=== PATIENT | male | born 1940 | race Caucasian/White ===

== ENCOUNTER → 2018-06-02 11:25 | Outpatient (CLI) | payer MEDICARE, OTHER, SELFPAY ==
[2018-06-02 12:11] LABS: Add Manual Diff / Slide Review NO; Basophils Percent Auto 0.9 % (0-2); Eosinophils Percent Auto 3.1 % (2-4); Hemoglobin 16.4 g/dL (13.5-17.5); Lymphocytes Percent Auto 27.9 % (25-40); Mean Corpuscular HGB Conc 34.3 % (30-36); Mean Corpuscular Hemoglobin 31.9 PG (26-34); Mean Corpuscular Volume 93.1 fL (80-100); Monocytes Percent Auto 8.9 % (3-14); Neutrophils Absolute Auto 3100 /uL (3000-5900); Neutrophils Percent Auto 59.2 % (50-75); Platelet Count 169 X10^3/uL (150-400); Red Blood Cell Count 5.15 X10^6/uL (4.5-5.9); Red Cell Distribution Width 13.1 % (11.6-14.8); White Blood Cell Count 5.3 X10^3/uL (4.5-11.0)
[2018-06-02 12:28] LABS: Erythrocyte Sedimentation Rate 9 MM/HR (0-15)
[2018-06-02 13:19] LABS: C-Reactive Protein Quant < 0.5 mg/dL (<1.0)
== END ==
PROVIDERS: PCP Internal Medicine; Visit Provider Specialist
DX: M31.6 Other giant cell arteritis (principal)
CPT/HCPCS: 36415; 85025; 85651; 86140

== ENCOUNTER 2018-08-22 02:47 | Emergency (ER) | payer MEDICARE, OTHER, SELFPAY ==
[2018-08-22] VITALS (10 sets, daily range): BP systolic 98–118; BP diastolic 56–76; PULSE 86–90; RESP 14–19; TEMP 36.4; O2SAT 22–95; BMI 30.7
--- NOTE | 2018-08-22 02:50 | DI.RAD.S_ITS ---
PROCEDURE: XR CHEST 1V INDICATIONS: SOb TECHNIQUE: One view of the chest was acquired. COMPARISON: [facility], CT, CT ANGIO CHEST PE PROTOCOL, 08/22/2018, 5:51. [facility], CR, CHEST 2 VIEW, 06/08/2017, 14:17. FINDINGS: Surgical changes and devices: None. Lungs and pleura: Widespread bilateral ill-defined hazy and groundglass opacities. There is also retrocardiac patchy consolidation. Bilateral layering pleural effusions. No pneumothorax identified. Mediastinum: Mediastinal contours appear normal. Heart size is enlarged. Bones and chest wall: No suspicious bony lesions. Overlying soft tissues appear unremarkable. IMPRESSION: Bilateral hazy and ill-defined opacities suggestive of pulmonary edema. Recommend clinical correlation to exclude superimposed infection. Please see recent comparison chest CT dated same day for further assessment. Small bilateral pleural effusions better characterized on the comparison CT Dictated by: Ramakrishna Reardon M.D. on 08/22/2018 at 8:00 Approved by: Ramakrishna Reardon M.D. on 08/22/2018 at 8:03
--- NOTE | 2018-08-22 03:00 | ED_ITS ---
HPI - SOB/Dyspnea General Chief Complaint: Shortness of Breath/Dyspnea Stated Complaint: pneumonia,shortness of breath Time Seen by Provider: 08/22/18 02:48 Source: patient Mode of arrival: ambulatory Limitations: no limitations History of Present Illness Patient is an 78-year-old male with history of coronary artery disease and stents placed also history of congestive heart failure on 20 mg of Lasix 2 times a day. He states he was emergently prescribed 40 mg of Lasix however 1 year ago he dropped it to 20 mg 2 times a day because it was causing him to urinate too much. He states that for the past several days/weeks he has had progressively worsening shortness of breath. At baseline he sleeps on 3 pillows at night and has been doing this. He states that he has been getting short of breath with walking. He has seen his primary doctor. He has completed a course of azithromycin for this shortness of breath. He does state that he is coughing but is not a productive cough. He had subjective fevers yesterday but none today. He came in this evening because his shortness of breath was worsening. States that he occasionally gets bilateral lower extremity swelling but he does not think that he has any swelling now. Has had occasional chest pain but states that that is not why he came into the emergency department. Related Data Home Medications Medication Instructions Recorded Confirmed clopidogrel [Plavix] 75 mg PO QDAY #0 12/28/10 08/22/18 oxybutynin chloride 5 mg PO TIDAC #0 12/28/10 acetaminophen 325 mg tablet 325 mg PO Q6H PRN 06/02/18 06/02/18 hydrocodone 5 mg-acetaminophen 300 2 tab PO Q4-6H PRN 06/02/18 06/02/18 mg tablet insulin asp prt-insulin aspart SUBCUT 06/02/18 06/02/18 oxycodone 5 mg tablet 5 mg PO Q4-6H PRN 06/02/18 06/02/18 pregabalin 300 mg capsule 300 mg PO TID cap 06/02/18 06/02/18 testosterone enanthate 200 mg/mL 200 mg IM Q2W 06/02/18 06/02/18 intramuscular oil pravastatin 40 mg PO DAILY 08/22/18 08/22/18 Allergies Allergy/AdvReac Type Severity Reaction Status Date / Time aspirin [ASPIRIN] Allergy Severe SEVERE Verified 08/22/18 03:11 BLEEDING diazepam [DIAZEPAM] Allergy Severe CONVULSIONS, Verified 08/22/18 03:11 HIVES zinc [ZINC] Allergy Severe SEVERE PAIN Verified 08/22/18 03:11 Review of Systems Constitutional Denies fever(s) and Denies headache(s) ENT Ears, Nose, Mouth, and Throat: Denies vertigo and Denies headache(s) Cardiovascular Reports chest pain (Occasionally but not now), Reports dyspnea, Reports dyspnea on exertion and Reports orthopnea Respiratory Reports cough, Reports dyspnea, Reports dyspnea on exertion and Denies wheezing Gastrointestinal Gastrointestinal: Denies abdominal pain, Denies nausea and Denies vomiting Genitourinary Denies dysuria Musculoskeletal Denies myalgias and Denies arthralgias Integumentary/Breasts Denies rash Neurologic Denies behavioral changes, Denies vertigo and Denies headache(s) Psychiatric Denies behavioral changes Hematologic/Lymphatic Denies easy bleeding and Denies easy bruising Allergic/Immunologic Denies wheezing PFSH Medical History Congestive heart failure (Acute) Coronary artery disease (Acute) Diabetes (Acute) Hypertension (Acute) Social History Smoking Status: Never smoker Social History Smoking Status: Never smoker Exam Initial Vital Signs Initial Vital Signs: Vital Signs Pulse Rate 90 08/22/18 03:00 Respiratory Rate 19 08/22/18 03:00 Blood Pressure 111/74 08/22/18 03:00 Pulse Oximetry 94 08/22/18 03:00 Const General: cooperative, well developed, well groomed and No acute distress Orientation: alert, awake and oriented x3 HENMT Head: normal to inspection and normocephalic Resp Effort & Inspection: no audible wheezes, no cough, not labored and tachypneic Auscultation: crackles Cardio Rate: regular rate Rhythm: regular rhythm Pulses: radial pulses present GI Inspection: non-distended Palpation: soft Skin Lesions: no lesions Rashes: no rashes Neuro General: alert and oriented x3 Extrem General: edema (1+ pitting edema bilateral) Psych Appearance: grossly normal and well kempt Course Orders Ordered: ED Orders 08/22/18 02:50 XR chest 1V Stat EKG-12 Lead Stat 08/22/18 03:40 B Type Natriuretic Peptide Stat Basic Metabolic Panel Stat Complete Blood Count AUTO DIFF Stat Partial Thromboplastin Time Stat Prothrombin Time INR Stat Troponin I Stat 08/22/18 05:41 CT angio chest PE protocol Stat Heparin Sodium/Dextrose (Heparin Drip) 25,000 unit in 500 mls @ 23.95 mls/hr IV CONT RANDEE; Protocol Last Admin: 08/22/18 06:12 Dose: 10.02 units/kg/hr, 20 mls/hr Sodium Chloride (Normal Saline 0.9%) 1,000 mls @ 150 mls/hr IV CONT RANDEE Last Admin: 08/22/18 06:13 Dose: 150 mls/hr Discontinued Medications Furosemide (Lasix) 60 mg IV NOW ONE Stop: 08/22/18 03:31 Last Admin: 08/22/18 03:55 Dose: 60 mg Heparin Sodium (Porcine) (Heparin) 0 unit IV Q6H PRN; Protocol PRN Reason: protocol Heparin Sodium (Porcine) (Heparin) 5,000 unit IV NOW ONE Stop: 08/22/18 04:44 Last Admin: 08/22/18 06:13 Dose: 5,000 unit Vital Signs - 8 hr 08/22/18 03:00 08/22/18 03:07 08/22/18 03:30 Temperature 97.6 F Pulse Rate 90 88 89 Respiratory Rate 19 14 19 Blood Pressure 111/74 Blood Pressure [Right Arm] 111/74 104/65 Pulse Oximetry 94 95 93 08/22/18 04:00 08/22/18 05:11 08/22/18 05:30 Temperature Pulse Rate 88 86 86 Respiratory Rate 18 17 18 Blood Pressure Blood Pressure [Right Arm] 117/76 108/70 108/71 Pulse Oximetry 92 93 94 08/22/18 06:36 08/22/18 07:32 Temperature Pulse Rate 86 88 Respiratory Rate 15 18 Blood Pressure Blood Pressure [Right Arm] 118/75 98/56 L Pulse Oximetry 22 L 90 L MDM - SOB/Dyspnea Lab Data Attestation: I reviewed the patient's lab results. Result diagrams: 08/22/18 03:40 08/22/18 03:40 Lab Results 08/22/18 08/22/18 08/22/18 Range/Units 03:40 03:40 03:40 WBC 6.1 (4.5-11.0) X10^3/uL RBC 5.00 (4.5-5.9) X10^6/uL Hgb 15.9 (13.5-17.5) g/dL Hct 46.7 (41-53) % MCV 93.5 (80-100) fL MCH 31.9 (26-34) PG MCHC 34.1 (30-36) % RDW 13.5 (11.6-14.8) % Plt Count 169 (150-400) X10^3/uL Neut % (Auto) 71.2 (50-75) % Lymph % (Auto) 17.3 L (25-40) % [place] % (Auto) 8.4 (3-14) % Eos % (Auto) 2.1 (2-4) % Baso % (Auto) 1.0 (0-2) % Neut # (Auto) 4400 (9149-3170) /uL Lymph # (Auto) 1100 (0215-2022) /uL [place] # (Auto) 500 (0-900) /uL Eos # (Auto) 100 (0-450) /uL Baso # (Auto) 100 (0-100) /uL PT 12.0 (10.1-12.7) SECONDS INR 1.0 (0.9-1.3) APTT 28 (26.4-36.2) SECONDS Sodium 137 (137-145) mmol/L Potassium 5.4 H (3.4-5.1) mmol/L Chloride 101 (98-107) mmol/L Carbon Dioxide 26 (22-32) mmol/L BUN 36 H (9-20) mg/dL Creatinine 1.50 H (0.66-1.25) mg/dL Estimated GFR 45.0 L (>60) mL/min BUN/Creatinine Ratio 24.0 H (6-22) Glucose 306 H (80-110) mg/dL Calcium 9.2 (8.4-10.2) mg/dL Troponin I 2.910 H* (0.01-0.034) ng/mL B-Natriuretic Peptide 1190 H (<100) Imaging Data Chest x-ray: Attestation: I personally reviewed and interpreted this imaging study as follows: My impression: Bilateral patchy infiltrates consistent with pulmonary edema no focal consolidation CT scan - chest: Radiologist's impression: No pulmonary emboli. Cardiomegaly. Moderate bilateral pleural effusions. Mild bronchial go vascular and septal thickening, likely pulmonary edema. Air-filled mildly dilated loops of small bowel, most likely ileus. Clinical correlation is recommended. ECG Data Attestation: I personally reviewed and interpreted this ECG as follows: Prior ECG tracings: not available for review Interpretation: Sinus rhythm Ventricular rate 85 Occasional PACs Right axis deviation Right bundle-branch Nonspecific ST T wave changes MDM Narrative Medical decision making narrative: Patient's history and physical exam concerning for CHF and less likely pneumonia given the setting of no fever and his elevated BNP. His troponin is also elevated. There is no ST elevations on his EKG. He was given 60 of Lasix here in the emergency department. Given his elevated troponin there is concern for non ST elevation CA. Initially patient very reluctant to start heparin however I informed him that given the elevated troponin and his cardiac history I did have concern that he was experiencing a cardiac event. We did discuss the risks and benefits and eventually he did except the medication. Patient preferred [facility] given his prior integration specialist there however there were no beds. Patient then asked for [facility]. Discussed the case with Dr. Peterson with Cardiology who accepts the patient in transfer. Discussed the transfer with the patient and his were bedside. They expressed understanding and agreement. Discharge Plan Departure Patient Disposition: [facility] Clinical Impression: Non-ST elevation CA (NSTEMI) Congestive heart failure Qualifiers: Heart failure type: unspecified Heart failure chronicity: unspecified Qualified Code(s): I50.9 - Heart failure, unspecified Prescriptions: No Action clopidogrel [Plavix] 75 MG tablet 75 mg PO QDAY Qty: 0 RF: 0 oxybutynin chloride 5 MG tablet 5 mg PO TIDAC Qty: 0 RF: 0 pravastatin 40 mg Tablet 40 mg PO DAILY RF: 0 insulin asp prt-insulin aspart SUBCUT RF: 0 pregabalin [Lyrica] 300 mg capsule 300 mg PO TID RF: 0 hydrocodone-acetaminophen [Vicodin] 5-300 mg tablet 2 tab PO Q4-6H PRNRF: 0 testosterone enanthate 200 mg/mL oil 200 mg IM Q2W RF: 0 oxycodone 5 mg tablet 5 mg PO Q4-6H PRNRF: 0 acetaminophen [Tylenol] 325 mg tablet 325 mg PO Q6H PRNRF: 0 Referrals: Narciso Kerr MD [Primary Care Provider] -
[2018-08-22 03:50] LABS: Add Manual Diff / Slide Review NO; Basophils Absolute Auto 100 /uL (0-100); Eosinophils Absolute Auto 100 /uL (0-450); Eosinophils Percent Auto 2.1 % (2-4); Hematocrit 46.7 % (41-53); Hemoglobin 15.9 g/dL (13.5-17.5); Lymphocytes Absolute Auto 1100 /uL (1100-4500); Lymphocytes Percent Auto 17.3 % (25-40); Mean Corpuscular HGB Conc 34.1 % (30-36); Mean Corpuscular Hemoglobin 31.9 PG (26-34); Mean Corpuscular Volume 93.5 fL (80-100); Monocytes Absolute Auto 500 /uL (0-900); Monocytes Percent Auto 8.4 % (3-14); Neutrophils Absolute Auto 4400 /uL (1500-7000); Neutrophils Percent Auto 71.2 % (50-75); Platelet Count 169 X10^3/uL (150-400); Red Cell Distribution Width 13.5 % (11.6-14.8); White Blood Cell Count 6.1 X10^3/uL (4.5-11.0)
[2018-08-22] MEDS: FUROSEMIDE 100 MG/10 ML VIAL 60 MG IV (03:55)
[2018-08-22 03:59] LABS: Blood Urea Nitrogen 36 mg/dL (9-20); Calcium 9.2 mg/dL (8.4-10.2); Carbon Dioxide 26 mmol/L (22-32); Chloride 101 mmol/L (98-107); Glucose 306 mg/dL (80-110); HEMOLYSIS < 15 (0-50); Sodium 137 mmol/L (137-145)
[2018-08-22 04:02] LABS: Potassium 5.4 mmol/L (3.4-5.1)
[2018-08-22 04:11] LABS: B Type Natriuretic Peptide 1190 (<100)
[2018-08-22 04:52] LABS: PTT Partial Thromboplastin Tim 28 SECONDS (26.4-36.2)
--- NOTE | 2018-08-22 05:37 | PC.NURSE ---
Dr Cooper at bedside discussing heparin with pt at great length.
--- NOTE | 2018-08-22 05:41 | DI.CT.S_ITS ---
PROCEDURE: CT ANGIO CHEST PE PROTOCOL INDICATIONS: Chest pain, shortness of breath, tachycardia TECHNIQUE: After the administration of intravenous contrast, 2 mm thick sections acquired from the pulmonary apices to the posterior costophrenic angles. 3-dimensional maximum intensity projection (MIP) coronal and sagittal reformats were then acquired through the thorax. For radiation dose reduction, the following was used: automated exposure control, adjustment of mA and/or kV according to patient size. COMPARISON: [facility], CR, XR CHEST 1V, 08/22/2018, 3:06. FINDINGS: Image quality: Excellent. Pulmonary arteries: Pulmonary arteries are normal in size, and demonstrate no intraluminal filling defects to suggest central pulmonary embolism. Lungs and pleura: Small bilateral pleural effusions with adjacent atelectasis. There is cephalization of vessels. Perihilar groundglass opacities are seen bilaterally suggestive of pulmonary edema. Mediastinum: Heart size is enlarged and there is calcific coronary artery disease, without pericardial effusion. Reflux of IV contrast into the IVC and hepatic veins suggesting decreased cardiac output Mildly prominent right hilar lymphoid tissue without definite pathologic size mediastinal or hilar adenopathy. Thoracic aorta is normal in caliber and enhancement. Esophagus is normal in caliber, and there is a small hiatal hernia. Bones and chest wall: No suspicious bony lesions. Ribs and thoracic spine appear intact throughout. Thyroid gland grossly unremarkable. No axillary or supraclavicular adenopathy. Abdomen: Numerous pancreatic calcifications suggesting chronic pancreatitis. Mild gaseous prominence of visualized upper small bowel loops, possible ileus although recommend clinical correlation. No bowel obstruction seen at this time. If the patient's symptoms do not improve, continued surveillance with short interval serial abdominal radiographs could be performed. IMPRESSION: No evidence of pulmonary embolism. Small bilateral pleural effusions and hazy bilateral perihilar groundglass opacities suggestive of pulmonary edema. Cardiomegaly. Coronary artery disease. CT evidence of decreased cardiac output as discussed above. Small hiatal hernia Dictated by: Ramakrishna Reardon M.D. on 08/22/2018 at 8:34 Approved by: Ramakrishna Reardon M.D. on 08/22/2018 at 8:40
[2018-08-22] MEDS: HEPARIN DRIP 25,000 UNIT/500 ML IV.SOLN 20 UNIT IV (06:12)
[2018-08-22] MEDS: SODIUM CHLORIDE 0.9% 1,000 ML 150 ML IV (06:13)
[2018-08-22] MEDS: HEPARIN 5,000 UNIT/ML VIAL 5000 UNIT IV (06:13)
--- NOTE | 2018-08-22 06:19 | PC.NURSE ---
guy STALLINGS verified heparin bolus and infusion rate.
--- NOTE | 2018-08-22 06:32 | PC.NURSE ---
Pt had a very lengthy conversation with provider in regards to heparin use. second line started and heparin infusing now. pt educated on heparin use and precautions regarding heparin and bleeding risk. Pt repeated back to this nurse I can bleed out everywhere, that's why I was worried about it. My cousin had vascular surgery and bled out because of heparin.
--- NOTE | 2018-08-22 07:40 | PC.NURSE ---
Pt is in bed w/ at bedside. Denies chest pIn. He is short of breath at rest w/ sat 90%. Placed on 2 L NC w/ sats improving to 94%. Aware of transport @ 0845. Denies questions or concerns.
== END 2018-08-22 09:53 | disposition short-term general hospital (02) ==
PROVIDERS: Emergency Provider Emergency Medicine; Family Provider Family Medicine; PCP Internal Medicine
DX: I21.4 Non-ST elevation (NSTEMI) myocardial infarction (principal); I50.9 Heart failure, unspecified
CPT/HCPCS: 36591; 71045; 71275; 80048; 83880; 84484; 85025; 85610; 85730; 93005; 96365; 96366; 96375; 99285; J1644; J1940; Q9967